=== PATIENT | male | born 1965 | race Caucasian/White ===

== ENCOUNTER 2023-10-02 18:22 | Emergency (ER) | payer MEDICAID, SELFPAY ==
--- NOTE | ~2023-10-02 | XR_ITS ---
EXAMINATION: XR chest 1V portable Exam Date/Time: 10/02/2023 19:35 CDT HISTORY: dyspnea Comparison: None. RESULT: Lines, tubes, and devices: None. Lungs and pleura: Clear. Cardiomediastinal silhouette: Normal. Other: No acute osseous or upper abdominal finding. IMPRESSION: No acute cardiopulmonary process. Reviewed, dictated and finalized at location K.
[2023-10-02 18:24] VITALS: BP 130/83; PULSE 76; RESP 19; TEMP 36.6; O2SAT 100
--- NOTE | 2023-10-02 18:42 | ECG_ITS ---
SEE SCANNED COPY FOR CONFIRMED REPORT MTDD
--- NOTE | 2023-10-02 18:44 | ED.GENADULT ---
HPI - General Adult General Chief complaint: Environmental Exposure Stated complaint: possible carbon monoxide poisoning Time Seen by Provider: 10/02/23 18:32 Source: patient Mode of arrival: ambulatory Limitations: no limitations History of Present Illness HPI narrative: This is a 58-year-old male who presents to the ED with chief complaint of possible carbon monoxide poisoning. 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 Reports he has had some fumes while driving. Shortly after work he started having headache and some bilateral lower extremity tingling. He also reports that he started to develop some dyspnea. States he had 1 episode of a few seconds of chest pain that resolved on its own. States symptoms are subsiding overall but he just wanted to get checked out. Denies fevers, chills focal weakness confusion, speech change, vision change. Related Data Allergies Allergy/AdvReac Type Severity Reaction Status Date / Time No Known Allergies Allergy Verified 10/02/23 18:28 Review of Systems Review of Systems: All systems as dictated in HPI Exam Narrative: GENERAL: Well-appearing, well-nourished, and in no acute distress. HEAD: Normocephalic, atraumatic. EYES: PERRLA and EOMI. ENT: Nares clear, no rhinorrhea or epistaxis. Mucous membranes moist. Oropharynx without tonsillar hypertrophy exudate or other lesions. NECK: Supple. No adenopathy or masses. CHEST: No respiratory distress. Clear to auscultation. No wheezes rales or rhonchi HEART: Regular rate and rhythm. No murmur heard. Normal peripheral pulses. ABDOMEN: Soft, nontender, nondistended, normal active bowel sounds. MSK: Normal range of motion. No edema. SKIN: Warm, dry, no rash. NEURO: Alert and oriented x4. No focal deficits. PSYCH: Normal mood and affect. Course Vital Signs Vital signs: Vital Signs Temperature 97.8 F 10/02/23 18:24 Pulse Rate 76 10/02/23 18:24 Respiratory Rate 19 10/02/23 18:24 Blood Pressure 130/83 10/02/23 18:24 Pulse Oximetry 100 10/02/23 18:24 Oxygen Delivery Room Air 10/02/23 18:24 Temperature 97.8 F 10/02/23 18:24 Pulse Rate 79 10/02/23 21:00 Respiratory Rate 14 10/02/23 21:00 Blood Pressure 131/87 10/02/23 21:00 Pulse Oximetry 100 10/02/23 21:00 Oxygen Delivery Room Air 10/02/23 18:24 Medical Decision Making MDM Narrative Medical decision making narrative: This is a 58-year-old male who presents to the ED with chief complaint of possible carbon monoxide exposure. 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 Vitals are normal. ECG shows normal sinus rhythm. Exam is benign. No respiratory distress. No neurologic deficit. VBG shows normal carboxyhemoglobin level. Lab work including troponin is grossly unremarkable. Heart score 1 due to age. Chest x-ray normal. Patient is obviously anxious on exam. He is requesting all of his results printed and is asking about each and every abnormal lab result. He is apprehensive about being discharged home because he feels that his breathing is heavy. I explained to the patient multiple times that he is not exhibiting signs of respiratory distress and that his workup today is normal. Wells score for PE is 0, making him very low risk. Patient was walked around the department and had a normal ambulatory pulse ox test. I tried to discharge the patient and he is still apprehensive about this. Attending Dr. Ocampo was able see the patient as well. Agrees with exam and disposition. The patient was then walked around the department again and had normal ambulatory pulse ox test. He does not appear short of breath while walking. Explained to the patient that he does not meet any kind of medical criteria for admission to the hospital. Encouraged him to follow up with his PCP for further management.
[2023-10-02 18:53] LABS: Fractional Inspired Oxygen 21 %; HCO3 VBG 22.3 mEq/l (24.0-30.0); PO2 VBG 75.4 mmHg (35.0-45.0)
[2023-10-02 18:54] LABS: Basophils Percent Auto 0.4 % (0.2-1.2); Eosinophils Percent Auto 0.2 % (0-4.4); Hematocrit 44.8 % (42.0-52.0); Hemoglobin 15.6 g/dL (14.0-18.0); Immature Granulocyte Absolute 0.01 K/mm3 (0.00-0.031); Immature Granulocyte Percent A 0.2 % (0-0.5); Lymphocytes Absolute Auto 0.92 K/mm3 (0.9-3.2); Lymphocytes Percent Auto 16.1 % (18.3-44.2); Mean Corpuscular HGB Conc 34.8 g/dl (32-36); Mean Corpuscular Hemoglobin 30.4 pg (26-34); Mean Corpuscular Volume 87.2 fl (80-100); Mean Platelet Volume 10.9 fl (7.4-10.4); Monocytes Absolute Auto 0.2 K/mm3 (0.1-0.6); Monocytes Percent Auto 3.3 % (2.6-8.5); Neutrophils Absolute Auto 4.6 K/mm3 (1.3-6.7); Neutrophils Percent Auto 79.8 % (45.5-73.1); Platelet Count Result 223 k/mm3 (150-375); Red Blood Count 5.14 M/mm3 (4.6-6.20); Red Cell Distribution Width 13.2 % (11.5-14.5); White Blood Count 5.7 K/mm3 (4.5-10.0)
[2023-10-02 18:55] LABS: Device ROOM AIR; PCO2 VBG 26.2 mmHg (42.0-48.0); pH VBG 7.547 (7.300-7.400)
[2023-10-02 19:05] LABS: Alanine Aminotransferase 25 U/L (6-50); Albumin Level 3.7 g/dL (3.5-5.1); Alkaline Phosphatase 52 U/L (38-126); Anion Gap 8 mmol/L (4-12); Aspartate Amino Transferase 22 U/L (17-59); Bilirubin,Total 0.8 mg/dL (0.2-1.3); Blood Urea Nitrogen 15 mg/dL (9-20); Calcium 8.9 mg/dL (8.4-10.2); Carbon Dioxide 21 mmol/L (22-30); Chloride 107 mmol/L (98-107); Estimated CRCL calculation 78 ml/min; Estimated Glomerular Filt Rate > 60; Glucose 202 mg/dL (65-110); Potassium 3.6 mmol/L (3.4-5.0); Sodium 136 mmol/L (137-145)
[2023-10-02 19:15] VITALS: BP 131/78; PULSE 90; RESP 19; O2SAT 99
[2023-10-02 19:17] LABS: Troponin I < 0.012 ng/mL (0.000-0.034)
[2023-10-02 20:04] VITALS: BP 120/87; PULSE 90; RESP 14; RESP 19; O2SAT 100; O2SAT 97
[2023-10-02 21:00] VITALS: BP 131/87; PULSE 79; RESP 14; O2SAT 100
--- NOTE | 2023-10-02 21:15 | PC.NURSE ---
RN attempted to discharge pt. Danielle FARFAN found pt. still in room after discharge wanting to talk with physcian about additional concerns. Thiago BANUELOS sent into pt. room to follow up with pt. all questions were answer. pt. still did not believe it was safe to leave. JUANITA Ocampo sent into pt. room to discuss concerns with pt. states an additional walking pulse oxygen saturation will be preformed to evaluate pt. pt. ambulated around ED second time and oxygen saturation remained at 97% with no issues. pt. also provided with lab work and CXR per VIN Das to additionally reassure the pt. pt. continues to argue with staff. pt. asked to leave ED due to discharge or security will be contacted. pt. requesting to speak to tank charger. pt. ambulated out of ed into waiting room.
== END 2023-10-02 20:50 | disposition home or self-care (01) ==
PROVIDERS: Emergency Provider Physician Assistant; PCP Nurse Practitioner Family
DX: F41.9 Anxiety disorder, unspecified (principal); Z77.098 Contact with and (suspected) exposure to other hazardous, chiefly nonmedicinal, chemicals; R94.31 Abnormal electrocardiogram [ECG] [EKG]
CPT/HCPCS: 36415; 71045; 80053; 82803; 84484; 85025; 93005; 99284